=== PATIENT | male | born 1995 | race Asian ===

== ENCOUNTER 2023-03-17 09:18 | Outpatient (REF) | payer SELFPAY ==
[2023-03-17 11:42] LABS: ~Hepatitis B Surface Antibody NONREACTIVE (Nonreactive)
[2023-03-20 01:59] LABS: TS Negative Control Passed; TS Panel A 1; TS Panel B 0; TS Positive Control Passed; TSpotTB Negative (Negative)
== END 2023-03-17 09:19 | disposition home or self-care (01) ==
LOC: HO.LAB 09:18
PROVIDERS: PCP Internal Medicine; Visit Provider Internal Medicine
DX: Z01.84 Encounter for antibody response examination (principal); Z11.1 Encounter for screening for respiratory tuberculosis
CPT/HCPCS: 36415; 86481; 86706; 87340

== ENCOUNTER 2023-05-11 11:24 | Outpatient (REF) | payer SELFPAY ==
[2023-05-12 08:29] LABS: HBS Num1 > 1000.00 mIU/mL (0-7.99); ~Hepatitis B Surface Antibody REACTIVE (Nonreactive)
== END 2023-05-11 11:25 | disposition home or self-care (01) ==
LOC: HO.MANLDS 11:24
PROVIDERS: Visit Provider Internal Medicine
DX: Z01.84 Encounter for antibody response examination (principal)
CPT/HCPCS: 36415; 86706